=== PATIENT | male | born 1975 | race African-American/Black ===

== ENCOUNTER 2017-10-09 11:09 | Emergency (ER) | payer BC ==
[2017-10-09] MEDS ORDERED: 0.9 % SODIUM CHLORIDE 10 ML DISP.SYRIN. IV (12:00)
[2017-10-09 12:01] LABS: ADD MAN DIFF? NO
[2017-10-09 12:04] LABS: BASO # 0.1 x10^3/uL (0.0-0.2); BASO % 1 % (0-3); EOS # 0.3 x10^3/uL (0.0-0.7); EOS % 3 % (0-3); HEMATOCRIT 44.9 % (39.0-53.0); HEMOGLOBIN 15.1 g/dL (13.0-17.5); LYMPH # 1.8 x10^3/uL (1.0-4.8); LYMPH % 18 % (24-48); MEAN CORPUSCULAR HEMOGLOBIN 31 pg (25-35); MEAN CORPUSCULAR HGB CONC 34 g/dL (31-37); MEAN CORPUSCULAR VOLUME 93 fL (79-100); MONO # 0.5 x10^3/uL (0.0-1.1); MONO % 5 % (0-9); NEUT # 7.3 x10^3uL (1.8-7.7); NEUT % 73 % (31-73); PLATELET COUNT 248 x10^3/uL (140-400); RED BLOOD COUNT 4.81 x10^6/uL (4.30-5.70); RED CELL DISTRIBUTION WIDTH 13.4 % (11.5-14.5)
[2017-10-09 12:15] LABS: ANION GAP 12 (6-14); BLOOD UREA NITROGEN 15 mg/dL (8-26); CALCIUM 8.7 mg/dL (8.5-10.1); CARBON DIOXIDE 25 mmol/L (21-32); CHLORIDE 105 mmol/L (98-107); GFR 83.2; GLUCOSE 117 mg/dL (70-99); POTASSIUM 4.2 mmol/L (3.5-5.1); SODIUM 142 mmol/L (136-145)
[2017-10-09 12:21] LABS: ALBUMIN 4.3 g/dL (3.4-5.0); ALK PHOS 79 U/L (46-116); ALT (SGPT) 23 U/L (16-63); AST (SGOT) 21 U/L (15-37); DIRECT BILIRUBIN 0.1 mg/dL (0.0-0.2); LIPASE 81 U/L (73-393); TOTAL BILIRUBIN 0.5 mg/dL (0.2-1.0); TOTAL PROTEIN 7.4 g/dL (6.4-8.2)
[2017-10-09 12:25] LABS: TROPONINI < 0.017 ng/mL (0.000-0.055)
[2017-10-09] MEDS: IV NORMAL SALINE 1000ML BAG 1,000 ML IV (12:26)
[2017-10-09 12:29] LABS: CKMB INDEX 0.3 % (0-4); CKMB MASS 1.1 ng/mL (0.0-3.6); CREATINE KINASE 371 U/L (39-308)
[2017-10-09] MEDS: IOHEXOL 300 MG/ML 100ML VIAL. IV (12:40)
[2017-10-09] MEDS ORDERED: CONTRAST GIVEN MC (12:45)
[2017-10-09] MEDS ORDERED: FAMOTIDINE 20 MG/2 ML VIAL (12:50)
[2017-10-09] MEDS ORDERED: methylPREDNISolone SOD SUCC PF 125 MG/2 ML VIAL. (12:50)
[2017-10-09] MEDS ORDERED: diphenhydrAMINE 50 MG/ML VIAL (12:50)
[2017-10-09] MEDS: methylPREDNISolone SOD SUCC PF 125 MG/2 ML VIAL. IV (12:52)
[2017-10-09] MEDS: diphenhydrAMINE 50 MG/ML VIAL IVP (12:52)
[2017-10-09] MEDS: FAMOTIDINE 20 MG/2 ML VIAL IVP (12:52)
[2017-10-09 13:50] LABS: BILIRUBIN,URINE NEGATIVE (NEG); CLARITY,URINE CLEAR; COLOR,URINE YELLOW; GLUCOSE,URINE NEGATIVE (NEG); NITRITE,URINE NEGATIVE (NEG); PROTEIN,URINE NEGATIVE (NEG-TRACE); UROBILINOGEN,URINE 0.2 mg/dL (0.2 mg/dL)
[2017-10-09 14:01] LABS: BACTERIA,URINE 0 /HPF (0-FEW); RBC,URINE 0 /HPF (0-2); SQUAMOUS EPITHELIAL CELL,UR OCC /LPF; WBC,URINE 0 /HPF (0-4)
== END 2017-10-09 15:01 | disposition home or self-care (01) ==
LOC: ER 11:09
DX: R10.84 Generalized abdominal pain (principal); R11.2 Nausea with vomiting, unspecified; R10.13 Epigastric pain; F12.10 Cannabis abuse, uncomplicated; Z91.041 Radiographic dye allergy status
CPT/HCPCS: 36415; 74177; 80048; 80076; 81001; 82553; 83690; 84484; 85025; 93005; 96361; 96374; 96375; 99285-25; J1200; J2930; J7030; Q9967; S0028

== ENCOUNTER → 2017-12-04 | Outpatient (CLI) | payer BC | END | disposition home or self-care (01) | LOC: NM 08:01 | DX: K30 Functional dyspepsia (principal); R11.0 Nausea | CPT/HCPCS: 78264; A9541 ==

== ENCOUNTER → 2017-12-11 | Day surgery (SDC) | payer BC ==
[~2017-12-11] MED LIST: LIDOCAINE 1% PF 2 ML VIAL. ID; MIDAZOLAM HCL/PF 2 MG/2 ML VIAL. IV; ONABOTULINUMTOXINA 100 UNIT VIAL. ID; ONDANSETRON PF 4 MG/2 ML VIAL.; PROPOFOL 40 ML IV; fentaNYL PF VIAL 100 MCG/2 ML VIAL IV
[2017-12-11] MEDS: IV RINGERS,LACTATED 1000ML 1,000 ML IV (08:28)
[2017-12-11] MEDS: ONABOTULINUMTOXINA 100 UNIT VIAL. ID (08:45)
[2017-12-11] MEDS: ONDANSETRON PF 4 MG/2 ML VIAL. IV (09:05)
[2017-12-11] MEDS: fentaNYL PF VIAL 100 MCG/2 ML VIAL IV (09:05)
== END ==
LOC: ENDOS 07:08
DX: K31.9 Disease of stomach and duodenum, unspecified (principal)
CPT/HCPCS: 43239; 88305; 88342; J0585; J2405; J2704; J3010

== ENCOUNTER 2021-08-11 00:30 | Emergency (ER) | payer BC ==
[~2021-08-11] VITALS: Ht 177.8 cm; Wt 90.9 kg
[~2021-08-11 00:30] MED LIST changes: -LIDOCAINE 1% PF 2 ML VIAL. ID; -MIDAZOLAM HCL/PF 2 MG/2 ML VIAL. IV; -ONABOTULINUMTOXINA 100 UNIT VIAL. ID; +ONDA4TAB10 PO; -ONDANSETRON PF 4 MG/2 ML VIAL.; -PROPOFOL 40 ML IV; +RANI-376 PO; -fentaNYL PF VIAL 100 MCG/2 ML VIAL IV
[2021-08-11] MEDS ORDERED: HYDROmorphone 2 MG/ML VIAL IVP ONE ×2 (01:15)
[2021-08-11] MEDS ORDERED: IV NORMAL SALINE 1000ML BAG 1,000 ML IV ONE (01:15)
[2021-08-11 01:20] LABS: BASO % 0 % (0-3); EOS # 0.3 x10^3/uL (0.0-0.7); EOS % 4 % (0-3); HEMATOCRIT 39.4 % (39.0-53.0); HEMOGLOBIN 13.7 g/dL (13.0-17.5); LYMPH # 3.6 x10^3/uL (1.0-4.8); LYMPH % 38 % (24-48); MEAN CORPUSCULAR HEMOGLOBIN 32 pg (25-35); MEAN CORPUSCULAR HGB CONC 35 g/dL (31-37); MEAN CORPUSCULAR VOLUME 93 fL (79-100); MONO # 0.9 x10^3/uL (0.0-1.1); MONO % 9 % (0-9); NEUT # 4.7 x10^3/uL (1.8-7.7); NEUT % 49 % (31-73); PLATELET COUNT 279 x10^3/uL (140-400); RED BLOOD COUNT 4.24 x10^6/uL (4.30-5.70); RED CELL DISTRIBUTION WIDTH 13.5 % (11.5-14.5); WHITE BLOOD COUNT 9.4 x10^3/uL (4.0-11.0)
[2021-08-11] MEDS ORDERED: ONDANSETRON PF 4 MG/2 ML VIAL. IVP ONE (01:30)
[2021-08-11 01:31] LABS: CALCIUM 8.3 mg/dL (8.5-10.1); CREATININE 1.3 mg/dL (0.7-1.3); GFR 72.9; POTASSIUM 3.5 mmol/L (3.5-5.1)
[2021-08-11 01:37] LABS: ALBUMIN 3.9 g/dL (3.4-5.0); ALBUMIN/GLOBULIN RATIO 1.3 (1.0-1.7); TOTAL BILIRUBIN 0.3 mg/dL (0.2-1.0); TOTAL PROTEIN 6.8 g/dL (6.4-8.2)
--- NOTE | 2021-08-11 02:08 | RAD ---
XR CHEST 1V Clinical Indication: Reason: flank pain / Spl. Instructions: / History: Comparison: None. Findings: Apical lordotic positioning. Prominent azygos vein. The cardiomediastinal silhouette is normal. Lungs are clear. There is no pneumothorax. No pleural effusion is appreciated. No acute bone abnormality. IMPRESSION: No acute cardiopulmonary process. Electronically signed by: Kiran Tyson MD (08/11/2021 2:05 AM) [facility]
[2021-08-11 02:16] LABS: BILIRUBIN,URINE NEGATIVE (NEG); CLARITY,URINE CLEAR; COLOR,URINE YELLOW; NITRITE,URINE NEGATIVE (NEG); PH,URINE 5.5 (<5.0-8.0); PROTEIN,URINE NEGATIVE (NEG-TRACE)
--- NOTE | 2021-08-11 02:16 | RAD ---
PQRS Compliance Statement: One or more of the following individualized dose reduction techniques were utilized for this examinat ion: 1. Automated exposure control 2. Adjustment of the mA and/or kV according to patient size 3. Use of iterative reconstruction technique CT ABDOMEN+PELVIS WO Clinical Indication: Reason: flank pain to abd + bloody stools / Spl. Instructions: / History: Comparison: CT abdomen and pelvis with contrast, October 09, 2017. Technique: Helical CT imaging of the abdomen and pelvis is performed without IV or oral contrast. Findings: Evaluation of solid organs and bowel is limited without oral and IV contrast, decreasing sensitivity for detection of pathology. Minimal atelectasis posterior left lower lobe. Cardiac size normal. 5 mm hypodensity in the right hepatic lobe, too small to further characterize. Liver otherwise homoge neous. Spleen, gallbladder, pancreas, adrenal glands, and abdominal aorta are normal. Mild left perinephric stranding, nonspecific. There is no left hydronephrosis. Mild right perinephric stranding. A renal calculus is not identified. There is minimal right hydroureteronephrosis. There i s a 2 mm calculus at the right ureterovesicular junction, image 192. The stomach is unremarkable. Tiny fat-containing umbilical hernia. The appendix is normal. No small b owel obstruction is seen. There is mild colon diverticulosis. No colon wall thickening is identified. No abdominal adenopathy or free fluid is identified. The urinary bladder is mostly decompressed. The prostate and seminal vesicles are normal. No pelvic f ree fluid is identified. No acute bone abnormality. IMPRESSION: 1. Minimal right obstructive uropathy secondary to a 2 mm calculus at the ureterovesicular junction. 2. Mild colon diverticulosis. Electronically signed by: Kiran Tyson MD (08/11/2021 2:14 AM) [facility]
[2021-08-11 02:21] LABS: BACTERIA,URINE 0 /HPF (0-FEW); RBC,URINE 0 /HPF (0-2); WBC,URINE OCC /HPF (0-4)
--- NOTE | 2021-08-11 02:28 | PHYS DOC ---
Past Medical History Past Medical History: No Pertinent History Past Surgical History: Other Additional Past Surgical Histo: pyloric stenosis as an Smoking Status: Current Every Day Smoker Alcohol Use: None Drug Use: Marijuana General Adult EDM: Chief Complaint: BACK PAIN OR INJURY HPI: HPI: 45-year-old male who denies any past medical history, presents the ED with his significant other, (patient consents to his/her/their knowledge and involvement in pts' medical care), complains of right flank pain that is radiating down to his right lower quadrant and pelvic region, started around midnight tonight. Does report associated nausea, nonbloody nonbilious vomiting. PSH pyloric stenosis repair in childhood. No prior history renal colic. Pt takes no routine prescribed medications. Spouse states "I've never seen him in this much pain." Review of Systems: Review of Systems: Constitutional: Denies fever or chills. [] Eyes: Denies change in visual acuity. [] HENT: Denies nasal congestion or sore throat. [] Respiratory: Denies cough or shortness of breath. [] Cardiovascular: Denies chest pain or edema. [] GI: Denies bloody stools or diarrhea. [] : Denies dysuria, hematuria or urethral discharge Musculoskeletal: Denies midline back pain or joint pain. [] Integument: Denies rash or diaphoresis Neurologic: Denies headache, focal weakness or sensory changes. [] Endocrine: Denies polyuria or polydipsia. [] Lymphatic: Denies swollen glands. [] Psychiatric: Denies depression or anxiety. [] Heart Score: C/O Chest Pain: No Risk Factors: Risk Factors: DM, Current or recent (<one month) smoker, HTN, HLP, family history of CAD, obesity. Risk Scores: Score 0 - 3: 2.5% MACE over next 6 weeks - Discharge Home Score 4 - 6: 20.3% MACE over next 6 weeks - Admit for Clinical Observation Score 7 - 10: 72.7% MACE over next 6 weeks - Early Invasive Strategies Current Medications: Current Medications Medications (Trade) Dose Ordered Sig/Rosalie Start Time Stop Time Status Last Admin Dose Admin Hydromorphone HCl (Dilaudid) 1 mg 1X ONCE 08/11/21 01:15 08/11/21 01:16 DC 08/11/21 02:05 1 MG Ondansetron HCl (Zofran) 4 mg 1X ONCE 08/11/21 01:30 08/11/21 01:31 DC 08/11/21 01:27 4 MG Sodium Chloride 1,000 ml @ 1,000 mls/hr 1X ONCE 08/11/21 01:15 08/11/21 02:14 DC 08/11/21 01:27 1,000 MLS/HR Allergies: Allergies: Allergies Coded Allergies Type Severity Reaction Last Updated Verified iodine Allergy Intermediate HIVES ITCHING 12/11/17 Yes Physical Exam: PE: Constitutional: writhing, moving in ed room/uncomfortable, HENT: Normocephalic, atraumatic, Eyes: EOMI, conjunctiva normal, no discharge. Neck: Normal range of motion, supple, Cardiovascular: S1/2 present, regular rhythm Lungs & Thorax: Speaking in full sentences, bilateral equal chest rise, no tachypnea or increased work of breathing Abdomen: soft, cannot reproduce right lower or pelvic tenderness, no rigidity or guarding Skin: Warm, dry, no erythema, no rash. [] Back: No tenderness, +right CVA tenderness. [] Extremities: No tenderness, no cyanosis, no lower extremity edema Neurologic: Alert and oriented X 3, normal motor function, normal sensory function, no focal deficits noted. [] Psychologic: Affect normal, judgement normal, mood normal. [] Current Patient Data: Labs: Laboratory Tests Test 08/11/21 01:00 08/11/21 02:10 White Blood Count 9.4 x10^3/uL (4.0-11.0) Red Blood Count 4.24 x10^6/uL (4.30-5.70) L Hemoglobin 13.7 g/dL (13.0-17.5) Hematocrit 39.4 % (39.0-53.0) Mean Corpuscular Volume 93 fL (79-100) Mean Corpuscular Hemoglobin 32 pg (25-35) Mean Corpuscular Hemoglobin Concent 35 g/dL (31-37) Red Cell Distribution Width 13.5 % (11.5-14.5) Platelet Count 279 x10^3/uL (140-400) Neutrophils (%) (Auto) 49 % (31-73) Lymphocytes (%) (Auto) 38 % (24-48) Monocytes (%) (Auto) 9 % (0-9) Eosinophils (%) (Auto) 4 % (0-3) H Basophils (%) (Auto) 0 % (0-3) Neutrophils # (Auto) 4.7 x10^3/uL (1.8-7.7) Lymphocytes # (Auto) 3.6 x10^3/uL (1.0-4.8) Monocytes # (Auto) 0.9 x10^3/uL (0.0-1.1) Eosinophils # (Auto) 0.3 x10^3/uL (0.0-0.7) Basophils # (Auto) 0.0 x10^3/uL (0.0-0.2) D-Dimer (Carissa) < 0.27 ug/mlFEU Sodium Level 139 mmol/L (136-145) Potassium Level 3.5 mmol/L (3.5-5.1) Chloride Level 104 mmol/L (98-107) Carbon Dioxide Level 25 mmol/L (21-32) Anion Gap 10 (6-14) Blood Urea Nitrogen 15 mg/dL (8-26) Creatinine 1.3 mg/dL (0.7-1.3) Estimated GFR (Cockcroft-Gault) 72.9 BUN/Creatinine Ratio 12 (6-20) Glucose Level 122 mg/dL (70-99) H Calcium Level 8.3 mg/dL (8.5-10.1) L Total Bilirubin 0.3 mg/dL (0.2-1.0) Aspartate Amino Transferase (AST) 18 U/L (15-37) Alanine Aminotransferase (ALT) 24 U/L (16-63) Alkaline Phosphatase 87 U/L (46-116) Troponin I High Sensitivity 6 ng/L (4-75) Total Protein 6.8 g/dL (6.4-8.2) Albumin 3.9 g/dL (3.4-5.0) Albumin/Globulin Ratio 1.3 (1.0-1.7) Urine Collection Type Unknown Urine Color Yellow Urine Clarity Clear Urine pH 5.5 (<5.0-8.0) Urine Specific Enigma 1.020 (1.000-1.030) Urine Protein Negative mg/dL (NEG-TRACE) Urine Glucose (UA) Negative mg/dL (NEG) Urine Ketones (Stick) Negative mg/dL (NEG) Urine Blood Negative (NEG) Urine Nitrite Negative (NEG) Urine Bilirubin Negative (NEG) Urine Urobilinogen Dipstick 1.0 mg/dL (0.2 mg/dL) Urine Leukocyte Esterase Negative (NEG) Urine RBC 0 /HPF (0-2) Urine WBC Occ /HPF (0-4) Urine Squamous Epithelial Cells Occ /LPF Urine Bacteria 0 /HPF (0-FEW) Urine Mucus Mod /LPF Laboratory Tests 08/11/21 01:00 Laboratory Tests 08/11/21 01:00 Vital Signs: Vital Signs Date Time Temp Pulse Resp B/P (MAP) Pulse Ox O2 Delivery O2 Flow Rate FiO2 08/11/21 02:05 Room Air 08/11/21 00:50 98.6 69 13 132/68 (89) 99 98.6 EKG: EKG: Sinus rhythm 60 bpm, limb lead discordance with P wave down 1 and up to 1 aVR, QTC 455, T wave inversion 1 and aVL, no ST elevation or ST depression Radiology/Procedures: Radiology/Procedures: IMAGING REPORT Signed PATIENT: AMY LOCO AACCOUNT: [id number] : 1975 LOCATION: ER AGE: 45 SEX: M EXAM STATUS: PRE ER ORD. PHYSICIAN: REGAN AVERY DO REASON: flank pain to abd + bloody stools PROCEDURE: CT ABDOMEN PELVIS WO CONTRAST PQRS Compliance Statement: One or more of the following individualized dose reduction techniques were utilized for this examination: 1. Automated exposure control 2. Adjustment of the mA and/or kV according to patient size 3. Use of iterative reconstruction technique CT ABDOMEN+PELVIS WO Clinical Indication: Reason: flank pain to abd + bloody stools / Spl. Instructions: / History: Comparison: CT abdomen and pelvis with contrast, October 09, 2017. Technique: Helical CT imaging of the abdomen and pelvis is performed without IV or oral contrast. Findings: Evaluation of solid organs and bowel is limited without oral and IV contrast, decreasing sensitivity for detection of pathology. Minimal atelectasis posterior left lower lobe. Cardiac size normal. 5 mm hypodensity in the right hepatic lobe, too small to further characterize. Liver otherwise homogeneous. Spleen, gallbladder, pancreas, adrenal glands, and abdominal aorta are normal. Mild left perinephric stranding, nonspecific. There is no left hydronephrosis. Mild right perinephric stranding. A renal calculus is not identified. There is minimal right hydroureteronephrosis. There is a 2 mm calculus at the right ureterovesicular junction, image 192. The stomach is unremarkable. Tiny fat-containing umbilical hernia. The appendix is normal. No small bowel obstruction is seen. There is mild colon diverticulosis. No colon wall thickening is identified. No abdominal adenopathy or free fluid is identified. The urinary bladder is mostly decompressed. The prostate and seminal vesicles are normal. No pelvic free fluid is identified. No acute bone abnormality. IMPRESSION: 1. Minimal right obstructive uropathy secondary to a 2 mm calculus at the ureterovesicular junction. 2. Mild colon diverticulosis. Electronically signed by: Kiran Tyson MD (08/11/2021 2:14 AM) [facility] DICTATED and SIGNED BY: KIRAN TYSON MD DATE: 08/11/[id number] 0 IMAGING REPORT Signed PATIENT: AMY LOCO AACCOUNT: [id number] : 1975 LOCATION: ER AGE: 45 SEX: M EXAM STATUS: PRE ER ORD. PHYSICIAN: REGAN AVERY DO REASON: flank pain PROCEDURE: CHEST AP ONLY XR CHEST 1V Clinical Indication: Reason: flank pain / Spl. Instructions: / History: Comparison: None. Findings: Apical lordotic positioning. Prominent azygos vein. The cardiomediastinal silhouette is normal. Lungs are clear. There is no pneumothorax. No pleural effusion is appreciated. No acute bone abnormality. IMPRESSION: No acute cardiopulmonary process. Electronically signed by: Kiran Tyson MD (08/11/2021 2:05 AM) [facility] DICTATED and SIGNED BY: KIRAN TYSON MD DATE: 08/11/212040332XLT1 0 Course & Med Decision Making: Course & Med Decision Making Pertinent Labs and Imaging studies reviewed. (See chart for details) Concern for 2 mm right obstructing uropathy with nausea and vomiting. Urinalysis with no hematuria, D-dimer within normal limits. Patient hemodynamically stable, h/h stable. Abdominal aorta and appendix within normal limits. On reevaluation patient is sleeping and resting comfortably. Will discharge with Flomax and analgesia. Will discharge home with strict ED return precautions were given for fever, flulike symptoms, intractable nausea vomiting or worsening pain. Encouraged urgent outpatient follow-up with PMD and urology as needed for definitive management of ureterolithiasis. Life-threatening pr ocesses were considered but are low suspicion at this time, given history, physical exam and ED workup. Pt was educated on all prescription medications and adverse effects. All patient's questions were answered and pt was stable at time of discharge. Life/limb-threatening differential includes but is not limited to, aortic dissection/aneurysm, cauda equina syndrome, transverse myelitis, spinal c ord/epidural compression syndromes, discitis, spinal stenosis, epidural abscess or hematoma, osteomyelitis, disc herniation, surgical abdomen, stable or unstable fracture, renal/ureteral colic, sepsis, meningitis, musculoskeletal injury, traumatic injury, intraabdominal/retroperitoneal or pelvic bleeding. I have spoken with the patient and/or caregivers. I explained the patient's condition, diagnoses and treatment plan based on the information available to me at this time. I have answered the patient and/or caregiver's questions and addressed any concerns. The patient and/or caregivers have a good understanding of patient's diagnosis, condition and treatment plan as can be expected at this point. Vital signs have been stable. Patient's condition is stable and appropriate for discharge from the emergency department. Patient will pursue further outpatient evaluation with primary care physician or other designated or consulting physician as outlined in the discharge instructions. The patient and/or caregivers are agreeable to this plan of care and follow-up instructions have been explained in detail. The patient and/or caregivers have received these instructions in written form and have expressed an understanding of the discharge instructions. The patient and/or caregivers are aware that any significant change of condition or worsening of symptoms should prompt immediate return to this or the closest emergency department or call to 911. Mason Disclaimer: Mason Disclaimer: This electronic medical record was generated, in whole or in part, using a voice recognition dictation system. Departure Departure Impression: Primary Impression: Renal colic on right side Additional Impression: Nausea and vomiting Disposition: HOME / SELF CARE / HOMELESS Condition: STABLE Referrals: PERNELL GOODWIN MD (PCP) Follow-up with your primary care physician in 24 to 48 hours OR FOLLOW UP WITH FAMILY MEDICINE: [address] [place] [address] Patient Instructions: Diet for Kidney Stones, Kidney Stones, Lithotripsy for Kidney Stones Additional Instructions: FOLLOW UP WITH UROLOGY: FOR DEFINITIVE MANAGEMENT within 1 week of right-sided ureterolithiasis [facility] [address] [place] [address] [place] [address] [address] [place] [address] [place] [address] [place] [address] EMERGENCY DEPARTMENT GENERAL DISCHARGE INSTRUCTIONS Thank you for coming to [facility] Emergency Department (ED) today and trusting us with you care. We trust that you had a positive experience in our Emergency Department. If you wish to speak to the department management, you may call the Director at [phone]. YOUR FOLLOW UP INSTRUCTIONS ARE FOLLOWS: 1. Do you have a private Doctor? If you do not have a private doctor, please ask for a resource list of physicians or clinics that may be able to assist you with follow up care. 2. The Emergency Physicain has interpreted your x-rays. The X-Ray specialist will also review them. If there is a change in the findings, you will be notified in 48 hours when at all possible. 3. A lab test or culture has been done, your results will be reviewed and you will be notified if you need a change in treatment. ADDITIONAL INSTRUCTIONS AND INFORMATION: 1. Your care today has been supervised by a physician who is specially trained in emergency care. Many problems require more than one evaluation for a complete diagnosis and treatment. We recommend that you schedule your follow up appointment as recommended to ensure complete treatment of you illness or injury. If you are unable to obtain follow up care and continue to have a problem, or if your condition worsens, we recommend that you return to the ED. 2. We are not able to safely determine your condition over the phone nor are we able to give sound medical advice over the phone. For these safety reasons, if you call for medical advice we will ask you to come to the ED for further evaluation. 3. If you have any questions regarding these discharge instructions please call the ED at [phone]. SAFETY INFORMATION: In the interest of safety, wellness, and injury prevention; we encourage you to wear your sealbelt, if you smoke; quite smoking, and we encourage family to use a protective helmet for bicycling and other sporting events that present an increased risk for head injury. IF YOUR SYMPTOMS WORSEN OR NEW SYMPTOMS DEVELOP, OR YOU HAVE CONCERNS ABOUT YOUR CONDITION; OR IF YOUR CONDITION WORSENS WHILE YOU ARE WAITING FOR YOUR FOLLOW UP APPOINTMENT; EITHER CONTACT YOUR PRIMARY CARE DOCTOR, THE PHYSICIAN WHOSE NAME AND NUMBER YOU WERE GIVEN, OR RETURN TO THE ED IMMEDIATELY. Scripts Hydrocodone Bit/Acetaminophen (HYDROCODONE-APAP 5-325 ) 1 Tab Tablet 1 TAB PO PRN Q6HRS PRN for PAIN for 3 Days, #12 TAB 0 Refills Prov: REGAN AVERY DO 08/11/21 Tamsulosin Hcl (FLOMAX) 0.4 Mg Cap.er.24h 1 CAP PO DAILY for 14 Days, #14 CAP 0 Refills Prov: REGAN AVERY DO 08/11/21 Ondansetron Hcl (ZOFRAN) 4 Mg Tablet 1 TAB PO PRN Q6-8HRS for nausea, #12 TAB Prov: REGAN AVERY DO 08/11/21 REGAN AVERY DO Aug 11, 2021 02:27
[2021-08-11] MEDS ORDERED: KETOROLAC 15 MG/ML VIAL. IVP ONE (02:30)
[2021-08-11] MEDS ORDERED: TAMSULOSIN 0.4 MG CAP.ER.24H. PO ONE (02:30)
[2021-08-11 02:33] VITALS: BP 129/71
[2021-08-11] MEDS ORDERED: ONDA4TAB7 PO (03:37)
[2021-08-11] MEDS ORDERED: TAMS0.4C97 PO (03:37)
[2021-08-11] MEDS ORDERED: HYDR-2761 PO (03:37)
--- NOTE | 2021-08-11 06:34 | EKG ---
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
== END 2021-08-11 03:55 | disposition home or self-care (01) ==
LOC: ER 00:30
DX: N13.2 Hydronephrosis with renal and ureteral calculous obstruction (principal); R11.2 Nausea with vomiting, unspecified
CPT/HCPCS: 36415; 71045; 74176; 80053; 81001; 84484; 85025; 85379; 93005; 96361; 96374; 96375; 96376; 99285; J1170; J1885; J2405; J7030

== ENCOUNTER → 2021-09-05 | Day surgery (SDC) | payer BC ==
[~2021-09-05] VITALS: Ht 177.8 cm; Wt 95.4 kg
[~2021-09-05] MED LIST changes: +HYDR-2761 PO; +HYDROmorphone 2 MG/ML VIAL IVP PRN; +IV RINGERS,LACTATED 1000ML 1,000 ML IV SCH; +LIDOCAINE 2% PF 5 ML VIAL. ONE; +MORPHINE SULFATE 2 MG/ML INJ. IVP PRN; +ONDA4TAB7 PO; +PROCHLORPERAZINE 10 MG/2 ML VIAL. IVP PRN; +PROPOFOL 10 MG/ML (20ML) VIAL. IV ONE; +TAMS0.4C97 PO; +fentaNYL PF VIAL 100 MCG/2 ML VIAL IVP PRN
[2021-09-05 13:49] VITALS: BP 117/74
--- NOTE | 2021-09-05 15:44 | PDOC4 ---
PROCEDURE Procedure EGD/biopsies, colonoscopy/biopsies. Indication: Chronic heartburn, r/o Hercules's, rectal bleeding. Meds: per anesthesia Findings: E--Grade B reflux at 40cm. G--patchy erythema, antrum, biopsied. D--Normal to second portion. JACKIE normal. --'Scope advanced to cecum. Prep adequate for polyps >6mm. Mucosa normal. Scattered tic's from sigmoid to ascending. 2, 4-5mm polyps at hepatic flexure and in descending, biopsied off. IH's on retroflex. Anali. well. Imp: GERD Antral erythema Diverticulosis IH's 2 small polyps REC: Resume meds and diet. Await path; repeat exams pending. F/u with me in 2 weeks. JOI HILL MD Sep 05, 2021 15:44
[2021-09-05 16:00] VITALS: BP 113/59
--- NOTE | 2021-09-07 17:46 | PATHOLOGY ---
[facility] Accession Number: [id number] . 01 Material submitted: . PART A: ANTRUM - ANTRUM BX PART B: hepatic flexure - HEPATIC FLEXURE BX POLYP PART C: colon - ASCENDING COLON POLYP BX. Modifiers: ascending . 01 Clinical history: . HEARTBURN, RECTAL BLEED EGD/COLON . 02 Diagnosis: A. Stomach "antrum", biopsy: - Gastric antral and oxyntic mucosa with mild chronic gastritis. - Negative for active inflammation, intestinal metaplasia, dysplasia, and malignancy. - Negative for Helicobacter pylori. . B. Large bowel "hepatic flexure polyp biopsy": - Tubular adenoma; negative for high-grade dysplasia and malignancy. . C. Large bowel "ascending colon polyp biopsy": - Tubular adenoma; negative for high-grade dysplasia and malignancy. (MLK:klaudia; 09/07/2021) S 09/07/2021 1632 Local . 02 Electronically signed: . Jelani Merida MD, Pathologist NPI- [id number] . 01 Gross description: . A. The specimen is received in formalin, labeled "Rosy, Sammy, antrum BX". Received is a single segment of pale martinez tissue measuring 0.4 cm in maximum dimensions. The specimen is entirely submitted in cassette A1. . B. The specimen is received in formalin, labeled "[place], Sammy, hepatic flexure polyp BX". Received are 2 segments of pale martinez tissue both measuring 0.3 cm in maximum dimensions. The specimen is entirely submitted in cassette B1. . C. The specimen is received in formalin, labeled "Rosy, Sammy, ascending colon polyp BX". Received is a single segment of pale martinez tissue measuring 0.3 cm in maximum dimensions. The specimen is entirely submitted in cassette C1. ([facility]; 09/06/2021) NRI/NRI 09/06/2021 2046 Local . 02 Microscopic: . Immunohistochemical stain results (properly controlled): - Helicobacter pylori (A1) - Negative for organisms. (MLK:klaudia; 09/07/2021) . 02 Pathologist provided ICD-10: K29.50, D12.3, D12.2 . 02 CPT . 571645, 289372, 291361, [id number] Specimen Comment: A courtesy copy of this report has been sent to [phone] Specimen Comment: Report sent to Performed at: 01 [facility] [address], [place] [id number] MD Chirag Cha MD Phone: [phone] Performed at: 02 [facility] [address] [place], [place] [id number] MD Maik Porter MD Phone: [phone]
== END | disposition home or self-care (01) ==
LOC: SURG 13:20
PROVIDERS: ATTEND Internal Medicine Gastroenterology
DX: K62.5 Hemorrhage of anus and rectum (principal); R12 Heartburn; K64.0 First degree hemorrhoids; K57.30 Diverticulosis of large intestine without perforation or abscess without bleeding; K29.50 Unspecified chronic gastritis without bleeding; D12.3 Benign neoplasm of transverse colon; D12.2 Benign neoplasm of ascending colon; K63.89 Other specified diseases of intestine; K31.89 Other diseases of stomach and duodenum; K21.00 Gastro-esophageal reflux disease with esophagitis, without bleeding; F17.210 Nicotine dependence, cigarettes, uncomplicated; Z20.822 Contact with and (suspected) exposure to COVID-19; Z79.899 Other long term (current) drug therapy; Z98.890 Other specified postprocedural states; Z91.041 Radiographic dye allergy status
CPT/HCPCS: 43239; 45380; 87426; 88305; 88342; J2704